=== PATIENT | female | born 1945 | race African-American/Black ===

== ENCOUNTER 2016-08-13 10:15 | Day surgery (SDC) | payer OTHER ==
[2016-08-12 13:22] LABS: HEMATOCRIT 22.4 % (37.0-47.0); HEMOGLOBIN 6.9 g/dL (12.0-16.0); MCH 28.8 PG (27-31); MCHC 30.8 g/dL (33-37); MCV 93.3 FL (81-99); MPV 8.8 FL (7.4-10.4); RBC 2.4 XMIL (4.2-5.4)
[2016-08-13] MEDS ORDERED: TYLENOL ONE (10:32)
[2016-08-13] MEDS ORDERED: BENADRYL ONE (10:32)
[2016-08-13] MEDS ORDERED: NS 250 ML ONE (10:32)
[2016-08-13 13:46] VITALS: BP 154/68
== END 2016-08-13 14:15 | disposition home or self-care (01) ==
LOC: OPS 10:15
PROVIDERS: ATTEND Internal Medicine
DX: C90.00 Multiple myeloma not having achieved remission (principal); D63.0 Anemia in neoplastic disease; Z79.899 Other long term (current) drug therapy; Z79.4 Long term (current) use of insulin
CPT/HCPCS: 85027; 86850; 86900; 86901; 86920; J7050; P9016